=== PATIENT | female | born 1980 | race Caucasian/White ===

== ENCOUNTER 2024-03-20 09:18 | Day surgery (SDC) | payer BC, SELFPAY ==
--- NOTE | 2024-03-04 12:01 | PCM.HP.BLA ---
History and Physical Date of Admission: 03/20/24 HPI: The patient is a 43 year old female presenting for pre-operative visit. She is scheduled for hysteroscopy with endometrial ablation, for menorrhagia on 03/20/24. Procedure discussed along with risks, benefits and complications. Other alternatives discussed for management. Consent form signed? Yes. PAST MEDICAL HISTORY PAST MEDICAL HISTORY Diagnosis Date ? Allergic rhinitis, cause unspecified Allergic rhinitis PAST SURGICAL HISTORY PAST SURGICAL HISTORY Procedure Laterality Date ? DELIVERY ONLY 11/10/2008 , low cervical ? LIG/TRNSXJ FLP TUBE ABDL/VAG APPR UNI/BI 11/10/2008 Tubal ligation ? NECK SURGERY HX 12/2015 ? PAST SURGICAL HISTORY OF [place] teeth extracted ? REMOVAL OF LEG VEIN 04/12/2013 left leg, procedure done by laser CURRENT MEDICATIONS Current Outpatient Medications Medication Sig Dispense Refill ? amLODIPine (NORVASC) 5 mg tablet ? meloxicam (MOBIC) 15 mg tablet Take 1 tablet by mouth every afternoon. ? RHOFADE 1 % crea ? methocarbamol (ROBAXIN) 750 mg tablet PLEASE SEE ATTACHED FOR DETAILED DIRECTIONS No current facility-administered medications for this visit. ALLERGIES: Seasonal Allergies PERSONAL HISTORY: SOCIAL HISTORY Social History Tobacco Use ? Smoking status: Never ? Smokeless tobacco: Never Vaping Use ? Vaping Use: Never used Substance Use Topics ? Alcohol use: No ? Drug use: No FAMILY HISTORY: FAMILY HISTORY FAMILY HISTORY Problem Relation Age of Onset ? other (Kidney Problems [Other]) Mother ? Hypertension Father ? Lipids Father ? Diabetes Maternal Grandfather ? Heart Paternal Grandmother ? Psychiatry Paternal Grandfather SUICIDE REVIEW OF SYMPTOMS: GENERAL: denies fevers or chills ENDOCRINOLOGY: has not been on steroids Cardiology : denies palpitations or chest pain Respiratory: denies SOB or cough Hematology: denies history of prolonged bleeding or easy bruising or VTE Allergy: Denies history of personal or family history of allergy to anesthesia PHYSICAL EXAMINATION: VITALS: Blood pressure 102/70, pulse 85, height 163.2 cm (5' 4.25), weight 85.7 kg (189 lb), last menstrual period 02/09/2024, SpO2 97%. GENERAL: The patient is well nourished, well hydrated in no acute distress. , The patient is oriented to time, place, and person. NECK: Supple. No lynphadenopathy, normal thyroid, no thyromegaly. LUNGS: Clear to auscultation bilaterally. no wheezes, rhonchi or rales HEART: Regular rate and rhythm, Normal heart sounds, and No murmurs or gallops PAP /HRHPV neg on 10/2020 EMB- 02/11/24 neg Pelvic US 02/11/24 Uterus Uterus: Visualized Uterus position: axial Description of uterine malformations: none Myometrium: heterogeneous Endometrium: intracavitary fluid: anechogenic Cervix details: cystic lesions identified suggesting superficial Nabothian cysts Uterus length 81 mm Uterus width 44 mm Uterus height 37 mm Uterus Vol 68.5 cm? Endometrial thickness, total 3.7 mm Uterine fibroid D1 7 mm Uterine fibroid D2 6 mm Uterine fibroid D3 9 mm Uterine fibroid mean 7.3 mm Uterine fibroid vol 0.198 cm? Uterine fibroids findings: Left lateral anterior wall. intramural Uterine fibroid D1 11 mm Uterine fibroid D2 9 mm Uterine fibroid D3 9 mm Uterine fibroid mean 9.7 mm Uterine fibroid vol 0.467 cm? Uterine fibroids findings: Right lateral anterior wall. intramural Right Ovary Rt ovary: Visualized Rt ovary morphology: premenopausal normal follicular Rt ovary D1 15 mm Rt ovary D2 14 mm Rt ovary D3 12 mm Rt ovary Vol 1.3 cm? Left Ovary Lt ovary: Visualized Lt ovary morphology: premenopausal normal follicular Lt ovary D1 22 mm Lt ovary D2 14 mm Lt ovary D3 11 mm Lt ovary Vol 1.8 cm? Cul de Sac Visualized. no free fluid visualized IMPRESSION: menorrhagia PLAN: The risks/benefits/alternatives and personal involved for the planned hysteroscopy with endometrial ablation were reviewed with the patient. Her questions were answered to her satisfaction and she desires to proceed. Consent was signed. I reviewed with her postop instructions and expectations. I have reviewed and updated past medical and surgical history, medications and allergies Tubal sterilization for contraception Assessment & Plan Assessment/Plan (1) Menorrhagia:
[2024-03-11 07:25] LABS: Hematocrit 39.9 % (37-47); Hemoglobin 13.2 g/dL (12.0-15.0); Mean Corp Hgb Conc 33.1 g/dL (32-36); Mean Corpuscular Hgb 30.3 pg (27.0-32.0); Mean Corpuscular Volume 91.7 fL (81-99); Mean Platelet Vol. 9.2 fl (6.2-12.0); Platelet Count 202 K/mm3 (150-450); RBC Distribution Width CV 13.1 % (11.6-14.6); RBC Distribution Width SD 44.4 fl (35.1-43.9); Red Blood Count 4.35 M/mm3 (4.2-5.4); White Blood Count 6.1 K/mm3 (4.4-11.0)
[2024-03-20] VITALS (7 sets, daily range): BP systolic 107–122; BP diastolic 64–77; PULSE 83–99; RESP 16–20; TEMP 36.1–36.5; O2SAT 93–98; BMI 33.2
[2024-03-20 09:38] LABS: Internal QC Validated? YES +Cl - CLEAR BKGD; Pregnancy, Urine Negative Negative; Record Kit Lot#,Urine Preg HCG0000772476
[2024-03-20] MEDS: Ketorolac 30 MG/ML Syringe IV (09:45)
[2024-03-20] MEDS: Acetaminophen 500 MG Tablet 1000 MG PO (09:45)
[2024-03-20] MEDS: Lactated Ringers 1,000 ML 15 ML IV (09:45)
--- NOTE | 2024-03-20 09:58 | PCM.PRE.AN2 ---
ASA Classification* ASA Classification ASA Classification: 2 Assessment & Plan Anesthesia* Anesthesia Assessment Anesthesia Assessment: Discussed sedation and/or anesthesia options, risks, benefits, and alternatives with patient/parents/legal guardian/POA. Questions invited. The patient/parents/legal guardian/POA seems to understand and agrees to proceed with anesthesia plan. Reviewed the physical assessment, medical history, allergy history and patient home medications list prior to surgery/procedure/anesthetic and documented any changes. Performed airway and anesthesia risk assessments. Anesthesia Type Anesthesia Type: MAC (see written pre anesthesia record for full assessment) Anesthesia Focused Assessment* Temperature: 97.3 F Pulse Rate: 83 Blood Pressure: 122/77 Respiratory Rate: 18 Pulse Ox: 97 Airway Assessment Mouth opens: >3 cm Mallampati Score: II Focused Labs Anesthesia Preop lab: CBC WBC 6.1 K/mm3 (4.4-11.0) 03/11/24 07:02 RBC 4.35 M/mm3 (4.2-5.4) 03/11/24 07:02 Hgb 13.2 g/dL (12.0-15.0) 03/11/24 07:02 Hct 39.9 % (37-47) 03/11/24 07:02 Plt Count 202 K/mm3 (150-450) 03/11/24 07:02 CHEMISTRY COAG Urine Test Negative Negative 03/20/24 09:25 Pre-Assessment Diagnosis/Proposed Procedure Planned Operative Procedure(s): Hysteroscopy, endometrial ablation with Zelda Anesthesia History Anesthesia History - managed services consultant: Anesthesia History - managed services consultant Hx Hospitalization No 03/10/24 08:42 Any Problems With Anesthesia No 03/10/24 08:42 Cholinesterase deficiency No 03/10/24 08:42 You/Your Family Experience No 03/10/24 08:42 fever (hyperthermia) with Relationship Recent Exposure to Contagious Disease Does patient have nerve No 03/10/24 08:42 stimulator Patient instructed to have device shut off --Does patient have Pacemaker No 03/20/24 09:33 or ICD? When Was Last Pacemaker Check QUESTION #4 FULL TEXT: You/Your Family Experience fever (hyperthermia) with Anesthesia Last Oral Intake Last Oral intake: Last Oral Intake NPO since 00:00 03/20/24 09:33 Meds taken in AM with sips of No 03/20/24 09:33 water? Meds patient instructed to take am of surgery PONV PONV - managed services consultant: PONV - managed services consultant Female Yes 03/10/24 08:42 HX of Motion Sickness No 03/10/24 08:42 HX of N/V After Surgery No 03/10/24 08:42 Non-Smoker Yes 03/10/24 08:42 Duration of Surgery greater No 03/10/24 08:42 than 60 minutes Number of Risk Factors 2 03/10/24 08:42 PONV Score Moderate Risk 03/10/24 08:42 Height & Weight Height & Weight: Anesthesia: Height & Weight Height 5 ft 3 in 03/20/24 09:33 Weight: 85 kg 03/20/24 09:33 Body Mass Index (BMI) 33.2 03/20/24 09:33 Respiratory Assessment Respiratory Assessment - managed services consultant: Respiratory Tract Infection Hx - managed services consultant Hx Respiratory Tract Infection No 03/10/24 08:42 STOP Sleep Apnea STOP Sleep Apnea - managed services consultant: STOP Sleep Apnea - managed services consultant Hx Hypertension Yes: CONTROLLED WITH MED 03/10/24 08:42 Hx Sleep Apnea No 03/10/24 08:42 CPAP BIPAP Do you snore loudly (louder No 03/10/24 08:42 than talking or can be heard Do you often feel tired/ No 03/10/24 08:42 fatigued/ sleepy during daytime? Has anyone observed you stop No 03/10/24 08:42 breathing during sleep? STOP Results Negative 03/10/24 08:42 QUESTION #5 FULL TEXT : Do you snore loudly (louder than talking or can be heard through closed doors)? 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 Specify any problems Hx of Preganancy in last 3 N/A 03/10/24 08:42 Months Nurse Filling Out Transfusion NBUCHER 03/10/24 08:42 & Questions: Date: 03/10/24 03/10/24 08:42 Time: 08:44 03/10/24 08:42 Patient unable to answer at this time (ie. confused, unrespo /Reproduction History /Reproductive History - managed services consultant: /Reproductive Hx- managed services consultant Hx Now No 03/10/24 08:42 Gestational Age (in weeks): EDC: Hx Hx Para Hx Section SAB No 03/10/24 08:42 Active Medications Active Medications: Current Medications Generic Name Dose Route Start Last Admin Trade Name Freq PRN Reason Stop Dose Admin Acetaminophen 1,000 mg 03/20/24 11:05 03/20/24 09:45 Acetaminophen 500 Mg Tablet PO 03/20/24 11:06 1,000 mg PREOP ONE Administration Lactated Ringer's 1,000 mls @ 15 mls/hr 03/20/24 09:30 03/20/24 09:45 IV 15 mls/hr .Q48H LASHANDA Administration Ketorolac Tromethamine 30 mg 03/20/24 11:05 03/20/24 09:45 Ketorolac 30 Mg/Ml Syringe IV 03/20/24 11:06 30 mg PREOP ONE Administration PFSH Medical History Cancer Heartburn Gastric reflux Hypertension Home Medications ?Medication ?Instructions ?Recorded ?Last Taken ?Type amlodipine 5 mg tablet 5 mg PO DAILY 03/10/24 03/19/24 History cholecalciferol (vitamin D3) 125 10,000 unit PO DAILY 03/10/24 03/19/24 History mcg (5,000 unit) tablet (Vitamin D3) magnesium 250 mg tablet 500 mg PO DAILY 03/10/24 03/19/24 History meloxicam 15 mg tablet 15 mg PO DAILY 03/10/24 03/17/24 History vitamin K2 180 mcg capsule 180 mcg PO DAILY 03/10/24 03/19/24 History Allergy/AdvReac Type Severity Reaction Status Date / Time No Known Allergies Allergy Verified 03/20/24 09:32 Surgical History History of wisdom tooth extraction History of neck surgery (~2015) History of (~2008) Social History Smoking Status: Never smoker Review of Systems (Anesthesia) ROS Narrative System reviewed and no additional complaints, except as documented.
[2024-03-20] MEDS: Lubricating Jelly 60 GM Tube 30 GM (13:27)
--- NOTE | 2024-03-20 13:27 | PCM.DC ---
Discharge Instructions Diet Discharge Diet: No restrictions Activity Discharge Activity: May Shower May resume sexual activity in: 1 week and 2 weeks Lifting Restrictions: none Dressing / Incision Call your doctor if your incision/area has: Sudden Increased Bleeding and Foul Smelling Discharge Call your doctor if you observe: Fever of 101 or Higher and Using more than 1 pad per hour (for 2 hrs in a row) Follow Up Care Please Follow Up With: Kami Kemp MD When: as needed. Call [phone] or send a [employer] message with non urgent questions. Test Results: Test results from this visit will be discussed in further detail at your follow-up appointment, if applicable. Discharge Plan Admission Primary Reason for Your Visit: Hysteroscopy with Endometrial ablation Attending Provider: Kami Kemp Primary Care Provider: Jer Schroeder Consulting Providers: Germain Gross Instructions Print Language: Japanese Discharge Orders/Prescriptions Prescriptions: No Action meloxicam 15 mg tablet 15 mg PO DAILY amlodipine 5 mg tablet 5 mg PO DAILY cholecalciferol (vitamin D3) [Vitamin D3] 125 mcg (5,000 unit) tablet 10,000 unit PO DAILY vitamin K2 180 mcg capsule 180 mcg PO DAILY magnesium 250 mg tablet 500 mg PO DAILY Referrals / Follow Up: Chucho Magana MD [Non-Staff] - Disposition Disposition (needs filled in before D/C Order can be placed): Home, Self Care
--- NOTE | 2024-03-20 13:28 | OP.PCM_ITS ---
Problems Associated Problem List Diagnoses (1) Menorrhagia: Report of Operation Date of Procedure: 03/20/24 Pre-Operative Diagnosis: menorrhagia Post-Operative Diagnosis: same Surgery/Procedure Performed:: Hysteroscopy with endometrial ablation Description of Surgical Findings:: normal cervix and vagina, normal endometrial cavity Surgeon: Kami Kemp hydroelectric plant electrical engineer: None Type of Anesthesia: MAC/Supplemental/Local Anesthesiologist: Kia Stein Special Medications: none Specimen's removed: none Drains: cox Estimated Blood Loss (mL): 10 Fluids Replaced: 700 Description of Procedure: The patient was taken to the OR where she was prepped and draped in dorsal lithotomy position. The weighted speculum was placed in the vagina and the anterior lip of the cervix was grasped with a single-tooth tenaculum. A paracervical block was administered with 1% lidocaine with 1-100,000 epinephrine solution. The cervix was dilated serially with Hegar dilators. The 5mm hysteroscope was placed into the uterine cavity and the above findings were noted. Bilateral tubal ostia were identified. The uterus sounded to 9 cm and the cervical length was 4 cm. The endometrial cavity length was 5 cm. The hysteroscope was removed. The Zelda device was set to 5 cm. The instrument was then seated into the endometrial cavity and the indicator was in the green. The cervical seal balloon was inflated and the uterine integrity test was passed. The ablation procedure was initiated and completed without interruption. During the ablation procedure gentle traction was held on the tenaculum and the Zelda device was held up against the uterine fundus. When the ablation procedure was completed the Zelda was removed. The tenaculum was removed and the tenaculum site was noted to be hemostatic. All sponge and needle counts were correct. A vaginal sweep was performed by me. The patient was awakened and taken to the recovery room in stable condition. Hysteroscopic ins: 200cc normal saline Hysteroscopic outs:100cc Grafts/Implants Used: none Procedure Start Time: 13:31 Procedure Stop Time: 13:39 Complications none Admit VTE Documentation VTE Present on Admission: No VTE Mechan Device Prophylaxis: SCD's VTE Pharm Prophylaxis ordered?: No
[2024-03-20] MEDS: Lidocaine 1% /Epi 1:100 (20ml) 20 ML Vial (13:30)
--- NOTE | 2024-03-20 13:49 | PCM.POST.ANE ---
Anesthesia: Postop Eval I Current Vital Signs Temperature: 97.7 F Pulse Rate: 99 Blood Pressure: 107/64 Respiratory Rate: 20 Pulse Ox: 93 Oxygen Delivery Method: Room Air Assessment Airway patent: Yes Spontaneous unlabored respirations: Yes nausea: No Vomiting: No Anesthesia Complication: No Fluid Hydration Crystalloid volume administer (ml): 800 Total IV fluid infused: 800 Progress Note Anesthesia document: Postop Eval 1 completed: Yes
--- NOTE | 2024-03-20 15:50 | POSTOPAN2_ITS ---
Anesthesia Postop Eval I Sum Postop Eval Completion status Anesthesia document: Postop Eval 1 completed: Yes Anesthesia Postop Eval I Summary Anesthesia Postop Eval I Summary: Anesthesia Postop Eval I: Assessment Summary Airway patent Yes 03/20/24 13:50 SAFETY RELIEF VALVE TECHNICIAN.CSIR Spontaneous unlabored Yes 03/20/24 13:50 SAFETY RELIEF VALVE TECHNICIAN.CSIR respirations Mental status nausea No 03/20/24 13:50 SAFETY RELIEF VALVE TECHNICIAN.CSIR Vomiting No 03/20/24 13:50 SAFETY RELIEF VALVE TECHNICIAN.CSIR Anesthesia Postop Eval I: Fluid Summary Crystalloid volume administer 800 03/20/24 13:50 SAFETY RELIEF VALVE TECHNICIAN.CSIR (ml) Colloids volume administered ( ml) Blood Product volume administered (ml) Total IV fluid infused 800 03/20/24 13:50 SAFETY RELIEF VALVE TECHNICIAN.CSIR Anesthesia Postop Eval I: Summary Notes Anesthesia Complication No 03/20/24 13:50 SAFETY RELIEF VALVE TECHNICIAN.CSIR Anesthesia Complication Comment: Post-operative progress note Anesthesia: Postop Eval II Evaluation Mental status: Awake and Calm Pain Level: 1 nausea: No Vomiting: No Complications Anesthesia Complication: No
--- NOTE | 2024-03-20 15:50 | PCM.POSTANE2 ---
Anesthesia Postop Eval I Sum Postop Eval Completion status Anesthesia document: Postop Eval 1 completed: Yes Anesthesia Postop Eval I Summary Anesthesia Postop Eval I Summary: Anesthesia Postop Eval I: Assessment Summary Airway patent Yes 03/20/24 13:50 CRYSTALLOGRAPHY TEACHER.CSIR Spontaneous unlabored Yes 03/20/24 13:50 CRYSTALLOGRAPHY TEACHER.CSIR respirations Mental status nausea No 03/20/24 13:50 CRYSTALLOGRAPHY TEACHER.CSIR Vomiting No 03/20/24 13:50 CRYSTALLOGRAPHY TEACHER.CSIR Anesthesia Postop Eval I: Fluid Summary Crystalloid volume administer 800 03/20/24 13:50 CRYSTALLOGRAPHY TEACHER.CSIR (ml) Colloids volume administered ( ml) Blood Product volume administered (ml) Total IV fluid infused 800 03/20/24 13:50 CRYSTALLOGRAPHY TEACHER.CSIR Anesthesia Postop Eval I: Summary Notes Anesthesia Complication No 03/20/24 13:50 CRYSTALLOGRAPHY TEACHER.CSIR Anesthesia Complication Comment: Post-operative progress note Anesthesia: Postop Eval II Evaluation Mental status: Awake and Calm Pain Level: 1 nausea: No Vomiting: No Complications Anesthesia Complication: No
== END 2024-03-20 14:28 | disposition home or self-care (01) ==
LOC: SDC 09:19 → AC 09:20
PROVIDERS: Anesthesiology; PCP Student in an Organized Health Care Education/Training Program; Referring Provider Obstetrics & Gynecology; Visit Provider Obstetrics & Gynecology
PROC: 0U5B8ZZ Destruction of Endometrium, Via Natural or Artificial Opening Endoscopic (ICD-10-PCS; CPT 58558; principal; 2024-03-20 10:50)
DX: N92.0 Excessive and frequent menstruation with regular cycle (principal); I10 Essential (primary) hypertension; Z79.899 Other long term (current) drug therapy; K21.9 Gastro-esophageal reflux disease without esophagitis
CPT/HCPCS: 58563; 00952; 36415; 81025; 85027; J7120; J2405